=== PATIENT | male | born 2000 | race Caucasian/White ===

== ENCOUNTER 2019-03-31 07:02 | Emergency (ER) | payer OTHER ==
[~2019-03-31] VITALS: Ht 182.9 cm; Wt 117.9 kg
[2019-03-31] MEDS ORDERED: ACCUNEB SO1.25 MG/1 INH (07:15)
[2019-03-31] MEDS ORDERED: CLARITIN10 MG PO (07:16)
[2019-03-31] MEDS ORDERED: VENTOLIN HFA 1818 GM INH (08:13)
[2019-03-31] MEDS ORDERED: PREDNISONE50 MG PO (08:13)
[2019-03-31] MEDS ORDERED: ALBUTEROL2.5 MG/31 INH (08:13)
[2019-03-31 08:26] VITALS: BP 150/79
== END 2019-03-31 08:28 | disposition home or self-care (01) ==
LOC: M.ERS 07:02
DX: J45.901 Unspecified asthma with (acute) exacerbation (principal)

== ENCOUNTER 2021-07-11 08:23 | Emergency (ER) | payer OTHER ==
[~2021-07-11] VITALS: Ht 175.3 cm; Wt 81.7 kg
[~2021-07-11 08:23] MED LIST: ACCUNEB SO1.25 MG/1 INH; ALBUTEROL2.5 MG/31 INH; CLARITIN10 MG PO; PREDNISONE50 MG PO; VENTOLIN HFA 1818 GM INH
[2021-07-11] MEDS ORDERED: PREDNISONE 20 M20 M1 PO (08:37)
[2021-07-11] MEDS ORDERED: PROAIR HFA8.5 GM INH (08:37)
[2021-07-11 08:42] VITALS: BP 136/85
== END 2021-07-11 08:42 | disposition home or self-care (01) ==
LOC: M.ERS 08:23
DX: J45.901 Unspecified asthma with (acute) exacerbation (principal); Z79.899 Other long term (current) drug therapy; Z88.0 Allergy status to penicillin